=== PATIENT | female | born 1965 | race Caucasian/White ===

== ENCOUNTER 2016-08-19 07:27 | Observation (INO) | payer BC ==
[2016-08-19] VITALS (8 sets, daily range): BP systolic 114–173; BP diastolic 72–89; PULSE 55–79; RESP 16–18; TEMP 97.9–98.1; O2SAT 95–99
[~2016-08-19 07:27] MED LIST: CIPR500T2 PO; LORT7.5T3 PO
[2016-08-19] MEDS ORDERED: SODIUM CHLORIDE 0.9% FLUSH 10 ML FLUSH IVF PRN (08:00)
[2016-08-19] MEDS ORDERED: ASPIRIN 81 MG CHEW TAB PO ONE (08:00)
--- NOTE | 2016-08-19 08:21 | PD ---
HPI Chief Complaint: Chest Pain Time Seen by Provider: 07:57 Travel History International Travel<30 days: No Contact w/Intl Traveler<30days: No History of Present Illness HPI Patient is a 51-year-old female with history of hypertension who presents to emergency room for evaluation of chest pain. As per patient, she has been having intermittent chest pain for the past 2 weeks. Reports that nothing really brings on her chest pain, reports that they can come on at rest or on exertion. She reports that when she has these symptoms, her chest pain is located to her left breast. Patient reports that chest pain is nonradiating in nature. Reports that her symptoms feel like a sharp and stabbing pain, reports that they last for a few seconds and then resolve and reports that this happens continuously for about 10-15 minutes at a time. Patient denies any shortness of breath or diaphoresis or nausea or vomiting with her symptoms. Patient reports only history of hypertension, reports that she is a smoker. Patient with no early family history of coronary disease or AZ, her mother did pass of an AZ in her 70s, her father also past of an AZ at an older age as well. Patient denies any recent travels/trips. No other c/o. Patient current with no chest pain in the ER. PFSH Past Medical History Hypertension: Yes Kidney Stones: Yes ?: Not Tubal Ligation: Yes Past Surgical History Section: Yes Genitourinary Surgery: Yes (URETER STENT X 10 DAYS 1994, LITHOTRYPSY 1999.) Other Surgery: Yes (REMOVAL OF LIVER TUMOR) Social History Alcohol Use: Yes Tobacco Use: Yes Substance Use: No Allergies-Medications (Allergen,Severity, Reaction): Coded Allergies: Kiwi (Verified Allergy, Severe, 08/19/16) Jordon (Verified Allergy, Severe, 08/19/16) Papaya (Verified Allergy, Severe, 08/19/16) Reported Meds & Prescriptions Reported Meds & Active Scripts Active Review of Systems General / Constitutional: No: Fever Eyes: No: Visual changes HENT: No: Headaches Cardiovascular: Positive: Chest Pain or Discomfort Respiratory: No: Shortness of Breath Gastrointestinal: No: Abdominal Pain Genitourinary: No: Dysuria Musculoskeletal: No: Pain Skin: No Rash Neurologic: No: Weakness Psychiatric: No: Depression Endocrine: No: Polydipsia Hematologic/Lymphatic: No: Easy Bruising Physical Exam Narrative GENERAL: No acute distress, nontoxic SKIN: Focused skin assessment warm/dry. HEAD: Atraumatic. Normocephalic. EYES: Pupils equal and round. No scleral icterus. No injection or drainage. ENT: No nasal bleeding or discharge. Mucous membranes pink and moist. NECK: Trachea midline. No JVD. CARDIOVASCULAR: Regular rate and rhythm. No murmur appreciated. Patient does have what appears to be a healing pimple under her left breast, there is no fluctuance or cellulitis or any signs of infection to the area. RESPIRATORY: No accessory muscle use. Clear to auscultation. Breath sounds equal bilaterally. GASTROINTESTINAL: Abdomen soft, non-tender, nondistended. Hepatic and splenic margins not palpable. MUSCULOSKELETAL: No obvious deformities. No clubbing. No cyanosis. No edema. NEUROLOGICAL: Awake and alert. No obvious cranial nerve deficits. Motor grossly within normal limits. Normal speech. PSYCHIATRIC: Appropriate mood and affect; insight and judgment normal. Data Data Last Documented VS Vital Signs Date Time Temp Pulse Resp B/P Pulse Ox O2 Delivery O2 Flow Rate FiO2 08/19/16 08:32 97 08/19/16 08:30 56 16 132/84 08/19/16 07:30 97.9 Orders Electrocardiogram (08/19/16 ) Electrocardiogram (08/19/16 ) Ckmb (Isoenzyme) Profile (08/19/16 07:57) Complete Blood Count With Diff (08/19/16 07:57) Comprehensive Metabolic Panel (08/19/16 07:57) D-Dimer (08/19/16 07:57) Magnesium (Mg) (08/19/16 07:57) Prothrombin Time / Inr (Pt) (08/19/16 07:57) Act Partial Throm Time (Ptt) (08/19/16 07:57) Troponin I (08/19/16 07:57) Chest, Single Ap (08/19/16 07:57) Ecg Monitoring (08/19/16 07:57) Iv Access Insert/Monitor (08/19/16 07:57) Oximetry (08/19/16 07:57) Aspirin Chew (Aspirin Chew) (08/19/16 08:00) Sodium Chloride 0.9% Flush (Ns Flush) (08/19/16 08:00) Ct Pulmonary Angiogram (08/19/16 08:44) Electrocardiogram (08/19/16 ) Nitroglycerin Sl (Nitrostat Sl) (08/19/16 09:00) Iohexol 350 Inj (Omnipaque 350 Inj) (08/19/16 10:17) Admit Order (Ed Use Only) (08/19/16 10:31) Labs Laboratory Tests Test 08/19/16 08:00 White Blood Count 6.3 TH/MM3 Red Blood Count 4.68 MIL/MM3 Hemoglobin 13.5 GM/DL Hematocrit 40.2 % Mean Corpuscular Volume 85.9 FL Mean Corpuscular Hemoglobin 28.9 PG Mean Corpuscular Hemoglobin 33.6 % Concent Red Cell Distribution Width 14.6 % Platelet Count 419 TH/MM3 Mean Platelet Volume 7.8 FL Neutrophils (%) (Auto) 55.4 % Lymphocytes (%) (Auto) 31.4 % Monocytes (%) (Auto) 6.4 % Eosinophils (%) (Auto) 5.6 % Basophils (%) (Auto) 1.2 % Neutrophils # (Auto) 3.5 TH/MM3 Lymphocytes # (Auto) 2.0 TH/MM3 Monocytes # (Auto) 0.4 TH/MM3 Eosinophils # (Auto) 0.4 TH/MM3 Basophils # (Auto) 0.1 TH/MM3 CBC Comment DIFF FINAL Differential Comment Prothrombin Time 9.9 SEC Prothromb Time International 0.9 RATIO Ratio Activated Partial 30.6 SEC Thromboplast Time D-Dimer Quantitative (PE/DVT) 0.62 MG/L FEU Sodium Level 135 MEQ/L Potassium Level 3.9 MEQ/L Chloride Level 101 MEQ/L Carbon Dioxide Level 27.7 MEQ/L Anion Gap 6 MEQ/L Blood Urea Nitrogen 20 MG/DL Creatinine 0.66 MG/DL Estimat Glomerular Filtration 94 ML/MIN Rate Random Glucose 92 MG/DL Calcium Level 9.5 MG/DL Magnesium Level 2.1 MG/DL Total Bilirubin 0.2 MG/DL Aspartate Amino Transf 21 U/L (AST/SGOT) Alanine Aminotransferase 21 U/L (ALT/SGPT) Alkaline Phosphatase 121 U/L Total Creatine Kinase 63 U/L Troponin I LESS THAN 0.02 NG/ML Total Protein 8.0 GM/DL Albumin 4.4 GM/DL MDM Medical Decision Making Medical Screen Exam Complete: Yes Emergency Medical Condition: Yes Interpretation(s) EKG at 0747: NSR at 60bpm, qt/qtc: 376/378, no acute st or t wave changes Vital Signs Date Time Temp Pulse Resp B/P Pulse Ox O2 Delivery O2 Flow Rate FiO2 08/19/16 07:30 97.9 79 18 173/89 97 Differential Diagnosis ACS, arrhythmia, electrolyte abnormality, PE, pneumothorax, muscle strain Narrative Course Patient is a 51-year-old female who presents to emergency room with complaints of chest pain. Upon arrival to emergency room, patient was placed on a manager cardiac and EKG was obtained. EKG is benign, it does not appear the patient has any ST or T-wave changes. Patient does complain of left sided chest pain, she does have what appears to be a healed abscess under her left breast, pain reports that this chest pain is "deeper" and most likely unrelated to her healing abscess/pimple under her left breast. Plan to obtain lab work including cardiac enzymes and x-ray of the chest. Patient with no chest pain at this time. Will continue to observe her. Laboratory Tests Test 08/19/16 08:00 White Blood Count 6.3 TH/MM3 (4.0-11.0) Red Blood Count 4.68 MIL/MM3 (4.00-5.30) Hemoglobin 13.5 GM/DL (11.6-15.3) Hematocrit 40.2 % (35.0-46.0) Mean Corpuscular Volume 85.9 FL (80.0-100.0) Mean Corpuscular Hemoglobin 28.9 PG (27.0-34.0) Mean Corpuscular Hemoglobin 33.6 % Concent (32.0-36.0) Red Cell Distribution Width 14.6 % (11.6-17.2) Platelet Count 419 TH/MM3 (150-450) Mean Platelet Volume 7.8 FL (7.0-11.0) Neutrophils (%) (Auto) 55.4 % (16.0-70.0) Lymphocytes (%) (Auto) 31.4 % (9.0-44.0) Monocytes (%) (Auto) 6.4 % (0.0-8.0) Eosinophils (%) (Auto) 5.6 % (0.0-4.0) Basophils (%) (Auto) 1.2 % (0.0-2.0) Neutrophils # (Auto) 3.5 TH/MM3 (1.8-7.7) Lymphocytes # (Auto) 2.0 TH/MM3 (1.0-4.8) Monocytes # (Auto) 0.4 TH/MM3 (0-0.9) Eosinophils # (Auto) 0.4 TH/MM3 (0-0.4) Basophils # (Auto) 0.1 TH/MM3 (0-0.2) CBC Comment DIFF FINAL Differential Comment Prothrombin Time 9.9 SEC (9.8-11.6) Prothromb Time International 0.9 RATIO Ratio Activated Partial 30.6 SEC Thromboplast Time (24.3-30.1) D-Dimer Quantitative (PE/DVT) 0.62 MG/L FEU (0.00-0.50) Sodium Level 135 MEQ/L (136-145) Potassium Level 3.9 MEQ/L (3.5-5.1) Chloride Level 101 MEQ/L (98-107) Carbon Dioxide Level 27.7 MEQ/L (21.0-32.0) Anion Gap 6 MEQ/L (5-15) Blood Urea Nitrogen 20 MG/DL (7-18) Creatinine 0.66 MG/DL (0.50-1.00) Estimat Glomerular Filtration 94 ML/MIN (>89) Rate Random Glucose 92 MG/DL (74-106) Calcium Level 9.5 MG/DL (8.5-10.1) Magnesium Level 2.1 MG/DL (1.5-2.5) Total Bilirubin 0.2 MG/DL (0.2-1.0) Aspartate Amino Transf 21 U/L (15-37) (AST/SGOT) Alanine Aminotransferase 21 U/L (10-53) (ALT/SGPT) Alkaline Phosphatase 121 U/L (45-117) Total Creatine Kinase 63 U/L (26-192) Troponin I LESS THAN 0.02 NG/ML (0.02-0.05) Total Protein 8.0 GM/DL (6.4-8.2) Albumin 4.4 GM/DL (3.4-5.0) D.Dimer elevated - patient agreeable to CTA to rule out PE, 0855: was called to bedside, patient reports that she has return of chest pain. Reports sharp/stabbing pain to left chest. Repeat EKG ordered. Will give dose of nitro and see if that helps with her symptoms. Repeat ekg at 0859: NSR at 61bpm, qt/qtc: 392/396, no acute st or t wave changes , non acute ekg changes Last Impressions Chest X-Ray 08/19/16 0757 Signed Impressions: Service Date/Time: Friday, August 19, 2016 08:27 - CONCLUSION: No acute disease. Mandeep Serrato MD CT pulmonary angiogram shows no PE, there appears to be of possible solid mass in the upper pole of the right kidney, I reviewed this kidney mass with patient. Understands need to follow-up with her primary care doctor for this possible solid right renal mass. A copy of her CT scan was given to her as she will need to follow-up with findings. Patient believes that this kidney mass is a kidney stone but she will follow up with it. Plan to admit her to chest pain unit for observation. Diagnosis Primary Impression: Chest pain Qualified Code: R07.9 - Chest pain, unspecified type Additional Impression: Renal mass Admitting Information Admitting Physician Requests: Observation Krystal Morales DO August 19, 2016 08:21
[2016-08-19 08:27] LABS: AUTOMATED NEUTROPHIL # 3.5 TH/MM3 (1.8-7.7); BASOPHIL # 0.1 TH/MM3 (0-0.2); BASOPHIL % 1.2 % (0.0-2.0); EOSINOPHIL # 0.4 TH/MM3 (0-0.4); EOSINOPHIL % 5.6 % (0.0-4.0); HEMATOCRIT 40.2 % (35.0-46.0); HEMO FLAGS DIFF FINAL; LYMPH % 31.4 % (9.0-44.0); MEAN CELL VOLUME 85.9 FL (80.0-100.0); MEAN CORPUSCULAR HEMOGLOBIN 28.9 PG (27.0-34.0); MEAN CORPUSCULAR HGB CONC 33.6 % (32.0-36.0); MONO % 6.4 % (0.0-8.0); NEUT % 55.4 % (16.0-70.0); PLATELET COUNT 419 TH/MM3 (150-450); RED BLOOD COUNT 4.68 MIL/MM3 (4.00-5.30); RED CELL DISTRIBUTION WIDTH 14.6 % (11.6-17.2); WHITE BLOOD COUNT 6.3 TH/MM3 (4.0-11.0)
[2016-08-19 08:38] LABS: APTT (PATIENT) 30.6 SEC (24.3-30.1); INTERNATIONAL NORMALIZED RATIO 0.9 RATIO; PROTHROMBIN TIME - PATIENT 9.9 SEC (9.8-11.6)
[2016-08-19 08:41] LABS: ALT (GPT) 21 U/L (10-53); ANION GAP 6 MEQ/L (5-15); AST (GOT) 21 U/L (15-37); BICARBONATE 27.7 MEQ/L (21.0-32.0); BLOOD UREA NITROGEN 20 MG/DL (7-18); CHLORIDE 101 MEQ/L (98-107); GLOMERULAR FILTRATION RATE 94 ML/MIN (>89); MAGNESIUM 2.1 MG/DL (1.5-2.5); POTASSIUM 3.9 MEQ/L (3.5-5.1); SODIUM (NA) 135 MEQ/L (136-145)
[2016-08-19 08:45] LABS: ALKALINE PHOSPHATASE 121 U/L (45-117); TOTAL BILIRUBIN ADULT 0.2 MG/DL (0.2-1.0)
[2016-08-19 08:46] LABS: CREATINE KINASE 63 U/L (26-192)
--- NOTE | 2016-08-19 08:58 | RADRPT ---
EXAM DATE/TIME: 08/19/2016 08:27 [facility] COMPARISON: No previous studies available for comparison. INDICATIONS : Chest pain for several days. MEDICAL HISTORY : Hypertension. Scoliosis. SURGICAL HISTORY : Barker Rods. ENCOUNTER: Initial ACUITY: 3 days PAIN SCORE: 4/10 LOCATION: Bilateral chest FINDINGS: A single view of the chest demonstrates the lungs to be symmetrically aerated without evidence of mas s, infiltrate or effusion. The cardiomediastinal contours are unremarkable. Scoliosis and scoliotic raleigh noted. CONCLUSION: No acute disease. Mandeep Serrato MD on August 19, 2016 at 8:55 Board Certified Radiologist. This report was verified electronically.
[2016-08-19] MEDS: NITROGLYCERIN 0.4 MG SL 25 TABS/BTL SL SCH ×2 (09:00→09:05)
[2016-08-19] MEDS ORDERED: IOHEXOL 350 MG/ML 10 ML VIAL (for RAD DIAG) IV ONE (10:17)
--- NOTE | 2016-08-19 10:29 | RADRPT ---
EXAM DATE/TIME: 08/19/2016 10:06 [facility] COMPARISON: No previous studies available for comparison. INDICATIONS : Chest pain today IV CONTRAST: 70 cc Omnipaque 350 (iohexol) IV RADIATION DOSE: 23.11 CTDIvol (mGy) MEDICAL HISTORY : Hypertension. SURGICAL HISTORY : Tubal ligation. ENCOUNTER: Initial ACUITY: 1 day PAIN SCALE: 5/10 LOCATION: upper chest TECHNIQUE: Volumetric scanning of the chest was performed using a pulmonary embolism protocol MIP images were re constructed. Using automated exposure control and adjustment of the mA and/or kV according to patien t size, radiation dose was kept as low as reasonably achievable to obtain optimal diagnostic quality images. FINDINGS: PULMONARY ARTERIES: No filling defects are seen in the pulmonary arteries through the segmental level. LUNGS: Mild atelectasis at the dependent portions of the lungs. Lungs otherwise clear. PLEURAE: There is no pleural thickening or pleural effusion. MEDIASTINUM: There is good visualization of the great vessels of the middle mediastinum. No evidence of mediastin al or hilar adenopathy/mass. MUSCULOSKELETAL: Thoracic longitudinal Butch seen on the left with bony fusion of the facet joints at multiple levels. P rominent thoracic scoliosis. MISCELLANEOUS: Possible solid mass in the upper pole of the right kidney partially visualized. 3.8 cm exophytic mas s off of the left lobe of the liver with Hounsfield unit measurements suggestive of cysts. Surgical c lips are seen anterior to the liver. CONCLUSION: 1. No evidence of pulmonary loss. 2. Possible solid right renal mass partially visualized. Recommend CT or MRI abdomen with and without contrast. Lonnie Wayne MD on August 19, 2016 at 10:19 Board Certified Radiologist. This report was verified electronically.
[2016-08-19] MEDS ORDERED: ONDANSETRON HCL 4 MG/2 ML VIAL IV PRN (11:45)
[2016-08-19] MEDS ORDERED: ACETAMINOPHEN/HYDROcodone 325 MG/7.5 MG TAB PO PRN (11:45)
[2016-08-19] MEDS ORDERED: ACETAMINOPHEN 500 MG CPLT PO PRN (11:45)
[2016-08-19] MEDS ORDERED: SODIUM CHLORIDE 0.9% FLUSH 5 ML FLUSH IVF PRN (11:45)
--- NOTE | 2016-08-19 11:55 | HHI.HP ---
HPI Primary Care Physician Non-Staff Chief Complaint CHEST PAIN History of Present Illness This is a 51-year-old female that presents to the ED via private vehicle with a complaint of 2 weeks of intermittent left-sided sharp chest discomfort. She states that it occurs for no apparent reason. It will last for a few seconds but constantly reoccurs for about 10-15 minutes at a time. She states that last evening while at work it became more frequent. It does not seem to be worsened or brought on by exertion. Happens at rest. Denies shortness of breath. She was nauseous with the last evening. No diaphoresis. She's not had symptoms like this in the past. She cannot think of anything that may have caused the discomfort. A CT of the chest was obtained through the ED and radiologist found possible solid right renal mass partially visualized with that scan and recommended CT or MRI with and without contrast. The patient thinks that that has been there in the past. She has kidney stones and thinks that she has heard her doctor talking about a. The ER physician said that is not emergent and can be managed by her primary care physician Dr. Morales on an outpatient basis. Review of Systems General: Patient denies fevers, chills recent, and recent travel HEENT: Patient denies headache, sore throat, difficulty swallowing. Cardiovascular: Has the chest discomfort as mentioned above. Denies sensation of heart beating rapidly or irregularly. No syncope. Denies diaphoresis. Respiratory: Denies shortness of breath or inspirational chest discomfort. Denies coughing wheezing or hemoptysis. GI: Patient felt nauseous last evening. Patient denies vomiting, diarrhea, abdominal pain, bloody stools. Musculoskeletal: Patient has chronic back pain. Patient denies joint pain or edema. Denies calf pain or edema. Neurovascular: Patient denies numbness, tingling, weakness in extremities. Denies headache. Endocrine: Denies polyuria and polydipsia. Hematologic: Denies easy bruising. Skin: Denies rash or itching. She has a healed area to the left lateral chest wall from where a mole was removed by her doctor. Denies redness or drainage from the area. This is however close to the area of the discomfort but she describes the discomfort as being deeper. Past Family Social History Allergies: Coded Allergies: Kiwi (Verified Allergy, Severe, 08/19/16) [place] (Verified Allergy, Severe, 08/19/16) Papaya (Verified Allergy, Severe, 08/19/16) Past Medical History Kidney stones and she believes she passed 2 of them 3 days ago. Hypertension. Tobacco abuse. Scoliosis with Barker rods placed when she was 17 years of age, she does have some chronic back issues. Denies hyperlipidemia diabetes and CAD. States that she had a stress test about 15-20 years ago and that was okay. Past Surgical History Barker raleigh for scoliosis. . Ureter stent in 1994 that was then removed. Lithotripsy. Reported Medications Reported Meds & Active Scripts Active Active Ordered Medications Current Medications Medications (Trade) Dose Ordered Sig/Deepak Route Start Time Stop Time Status Last Admin (NS Flush) 2 ml UNSCH PRN IVF 08/19/16 08:00 Family History Her father had an RI in past in his 80s. Her mother had an RI in her 70s and past. She believes that her brother has had an RI but does not know specifics or the age at which it occurred. Social History Patient smokes an average 1 pack of cigarettes daily for 25-30 years. She has several alcohol beverages one day a week on the weekends. Denies illicit drugs. She has been for 2 months. Physical Exam Vital Signs Vital Signs Date Time Temp Pulse Resp B/P Pulse Ox O2 Delivery O2 Flow Rate FiO2 08/19/16 08:32 97 08/19/16 08:30 56 16 132/84 97 08/19/16 07:30 97.9 79 18 173/89 97 Physical Exam GENERAL: This is a well-nourished, well-developed patient, in no apparent distress. Patient speaks in clear complete sentences. Patient is pleasant. HEENT: Head is atraumatic and normocephalic. Neck is supple without lymphadenopathy and trachea is midline. No JVD or carotid bruits. CARDIOVASCULAR: Regular rate and rhythm without murmurs, gallops, or rubs. RESPIRATORY: Clear to auscultation. Breath sounds equal bilaterally. No wheezes , rales, or rhonchi. Chest wall is tender but does not feel similar to the discomfort that she has been having. No use of accessory muscles. GASTROINTESTINAL: Abdomen is nontender, nondistended. Abdomen soft. No obvious pulsatile mass or bruit. No CVA tenderness. Strong femoral pulses bilaterally. Normal bowel sounds in all quadrants. MUSCULOSKELETAL: Patient is moving upper and lower extremities freely. No calf tenderness or edema, no Homans sign. Strong pulses in upper and lower extremities. NEUROLOGICAL: Patient is alert and oriented. Cranial nerves 2-12 are grossly intact. No focal deficits and speech is clear. SKIN: No rash and turgor is normal. Laboratory Laboratory Tests Test 08/19/16 08:00 White Blood Count 6.3 Red Blood Count 4.68 Hemoglobin 13.5 Hematocrit 40.2 Mean Corpuscular Volume 85.9 Mean Corpuscular Hemoglobin 28.9 Mean Corpuscular Hemoglobin 33.6 Concent Red Cell Distribution Width 14.6 Platelet Count 419 Mean Platelet Volume 7.8 Neutrophils (%) (Auto) 55.4 Lymphocytes (%) (Auto) 31.4 Monocytes (%) (Auto) 6.4 Eosinophils (%) (Auto) 5.6 Basophils (%) (Auto) 1.2 Neutrophils # (Auto) 3.5 Lymphocytes # (Auto) 2.0 Monocytes # (Auto) 0.4 Eosinophils # (Auto) 0.4 Basophils # (Auto) 0.1 CBC Comment DIFF FINAL Differential Comment Prothrombin Time 9.9 Prothromb Time International 0.9 Ratio Activated Partial 30.6 Thromboplast Time D-Dimer Quantitative (PE/DVT) 0.62 Sodium Level 135 Potassium Level 3.9 Chloride Level 101 Carbon Dioxide Level 27.7 Anion Gap 6 Blood Urea Nitrogen 20 Creatinine 0.66 Estimat Glomerular Filtration 94 Rate Random Glucose 92 Calcium Level 9.5 Magnesium Level 2.1 Total Bilirubin 0.2 Aspartate Amino Transf 21 (AST/SGOT) Alanine Aminotransferase 21 (ALT/SGPT) Alkaline Phosphatase 121 Total Creatine Kinase 63 Troponin I LESS THAN 0.02 Total Protein 8.0 Albumin 4.4 Result Diagram: 08/19/16 0800 08/19/16 0800 Imaging Last [address] Angiography 08/19/16 0844 Signed Impressions: Service Date/Time: Friday, August 19, 2016 10:06 - CONCLUSION: 1. No evidence of pulmonary loss. 2. Possible solid right renal mass partially visualized. Recommend CT or MRI abdomen with and without contrast. Lonnie Wayne MD Chest X-Ray 08/19/16 0757 Signed Impressions: Service Date/Time: Friday, August 19, 2016 08:27 - CONCLUSION: No acute disease. Mandeep Serrato MD Course Initial EKG has sinus rhythm without significant ST segment depressions or elevations. Assessment and Plan Assessment and Plan * Chest pain: Patient will continue to have serial cardiac enzymes and EKGs for ruling out purposes and will be seen by Dr. Merchant cardiology in the chest pain center. When discussing stress test, patient states that she does not want to go on the treadmill. She states that she has chronic back pain that would cause problems and also states she does not feel well enough to go on the treadmill. Subsequently a Lexiscan will be obtained and she patient will be discharged at that stress test is nonischemic with instructions to follow-up with her primary care physician. * Right renal mass: Radiology reports possible solid right renal mass partially visualized in the CTA of the chest. Patient thinks that that has been in prior CTs but is not 100% sure. She states she has a primary care doctor if she can follow-up with. The ER physician has artery given a copy of the CT report for discuss with her primary care physician. She should follow-up with them within a few days at discharge. * Hypertension: Continue current medication. * Tobacco abuse: Patient has been counseled on importance of smoking cessation. Patient is stable at this time. She is agreeable to this plan. Yuri Riley August 19, 2016 11:55
[2016-08-19 12:00] LABS: CREATINE KINASE 44 U/L (26-192)
[2016-08-19] MEDS ORDERED: AMLO10 PO (12:00)
[2016-08-19] MEDS ORDERED: PANTOPRAZOLE SOD 40 MG DELAYED RELEASE TAB PO SCH (12:00)
[2016-08-19] MEDS ORDERED: ENAL20TA PO ×2 (12:00→12:54)
[2016-08-19] MEDS ORDERED: AMLO10TA2 PO (12:54)
[2016-08-19] MEDS ORDERED: REGADENOSON INJ 0.4 MG/5 ML SYR ONE (14:30)
--- NOTE | 2016-08-19 16:37 | RADRPT ---
EXAM DATE/TIME: 08/19/2016 13:55 [facility] COMPARISON: No previous studies available for comparison. INDICATIONS : Left sided chest pain for two weeks. Angina. DOSE: 25.4 mCi Tc99m Myoview at stress. 8.5 mCi Tc99m Myoview at rest. 0.4 mg Lexiscan STRESS SYMPTOMS: Anxious and nausea. EJECTION FRACTION: 69% MEDICAL HISTORY : Hypertension. SURGICAL HISTORY : section. Tubal ligation. ENCOUNTER: Initial ACUITY: 2 weeks PAIN SCALE: 5/10 LOCATION: chest TECHNIQUE: The patient underwent pharmacologic stress with infusion of prescribed dose. Continuous ECG tracing was monitored during stress. Gated SPECT imaging was performed after stress and conventional SPECT i maging was performed at rest. The examination was performed on a SPECT/CT scanner, both attenuation and non-corrected datasets were reviewed. FINDINGS: DISTRIBUTION: The maximum perfused segment at stress is in the anterior wall. PERFUSION STUDY: The pattern of perfusion at stress is within normal limits. GATED STUDY: There is intact wall motion and thickening without hypokinetic or dyskinetic segments. CONCLUSION: Normal myocardial perfusion scan without evidence of extra reversible perfusion abnormalities. Normal wall motion and ejection fraction. RISK CATEGORY: Low (<1% Annual Mortality Rate) Colt Chambers MD on August 19, 2016 at 16:33 Board Certified Radiologist. This report was verified electronically.
--- NOTE | 2016-08-19 16:43 | HHI.DCPOC ---
Discharge Care Plan Diagnosis: (1) Chest pain (2) Renal mass (3) Hypertension (4) Tobacco abuse Goals to Promote Your Health NEED TO HAVE OUTPATIENT FOLLOW UP WITH YOUR PRIMARY CARE DOCTOR OR SPECIALIST WITHIN 2-[address]CUSS ABNORMAL [address] SCAN REVEALING POSSIBLE KIDNEY MASS. YOU WILL NEED CT OF ABDOMEN OR MRI OF ABDOMEN WITH AND WITHOUT CONTRAST TO EVALUATE THE MASS. * To prevent worsening of your condition and complications * To maintain your health at the optimal level Directions to Meet Your Goals Take your medications as prescribed Follow your dietary instruction Follow activity as directed Keep your appointments as scheduled Take your immunizations and boosters as scheduled If your symptoms worsen call your PCP, if no PCP go to Urgent Care Center or Emergency Room Smoking is Dangerous to Your Health. Avoid second hand smoke Call the 24-hour hour crisis hotline for domestic abuse at Yuri Riley August 19, 2016 16:43
--- NOTE | 2016-08-19 17:58 | EKG ---
Date Performed: 08/19/2016 Time Performed: 07:47:51 PTAGE: 51 years EKG: Sinus rhythm NORMAL ECG Since PREVIOUS TRACING , no significant change noted PREVIOUS TRACIN10/31/1998 21.24 DOCTOR: Emily Merchant Interpretating Date/Time 08/19/2016 17:57:58
--- NOTE | 2016-08-19 17:59 | EKG ---
Date Performed: 08/19/2016 Time Performed: 08:59:54 PTAGE: 51 years EKG: Sinus rhythm WITH SINUS ARRHYTHMIA NORMAL ECG Since previous tracing, no significant change noted NO PREVIOUS TRACING DOCTOR: Emily Merchant Interpretating Date/Time 08/19/2016 17:58:09
--- NOTE | 2016-08-19 17:59 | TR ---
Date Performed: 08/19/2016 Time Performed: 14:35:58 DOCTOR: Emily Merchant DRUG LIST: CLINICAL HISTORY: CHEST PAIN REASON FOR TEST: CHEST PAIN REASON FOR ENDING: OBSERVATION: CONCLUSION: Lexiscan stress test was performed under standard four minute protocol. Radionuclid e was injected one minute prior to ending the test. No electrocardiographic abormalities were present to suggest ischemia. Nuclear imaging and interpretation are pending. COMMENTS:
[2016-08-19] MEDS ORDERED: SODIUM CHLORIDE 0.9% FLUSH 5 ML FLUSH IVF SCH (21:00)
[2016-08-20] MEDS ORDERED: ASPIRIN 325 MG TAB PO SCH (09:00)
== END 2016-08-19 17:30 | disposition home or self-care (01) ==
LOC: NEPC 07:27 → NEDA 10:35 → NEPFCDU 12:39
PROVIDERS: ADMIT Internal Medicine Interventional Cardiology; ATTEND Internal Medicine Interventional Cardiology
DX: R07.89 Other chest pain (principal); I10 Essential (primary) hypertension; G89.29 Other chronic pain; M54.9 Dorsalgia, unspecified; F17.210 Nicotine dependence, cigarettes, uncomplicated; Z91.018 Allergy to other foods; Z87.442 Personal history of urinary calculi
CPT/HCPCS: 71010; 71275; 78452; 80053; 82550; 83735; 84484; 85025; 85379; 85610; 85730; 93005; 93017; 99285; A9502; G0378; J2785; Q9967